=== PATIENT | male | born 1955 | race Caucasian/White ===

== ENCOUNTER 2021-05-08 13:47 | Emergency (ER) | payer BC, OTHER | END 2021-05-08 14:42 | disposition home or self-care (01) | LOC: MADERS 13:47 | DX: S16.1XXA Strain of muscle, fascia and tendon at neck level, initial encounter (principal); R59.0 Localized enlarged lymph nodes; I10 Essential (primary) hypertension; M19.90 Unspecified osteoarthritis, unspecified site; Z79.899 Other long term (current) drug therapy; V89.2XXA Person injured in unspecified motor-vehicle accident, traffic, initial encounter | CPT/HCPCS: 70450; 72125 ==